=== PATIENT | male | born 1965 | race Caucasian/White ===

== ENCOUNTER 2025-09-11 08:43 | Day surgery (SDC) | payer BC ==
[~2025-09-11 08:43] MED LIST: Sodium Chloride 0.9% 10 ML Syringe FLUSH PRN; Sodium Chloride 0.9% 2.5 ML Syringe FLUSH PRN
[2025-09-11] MEDS: Lactated Ringers 1,000 ML IV SCH (09:38)
[2025-09-11] MEDS ORDERED: propofoL 500 MG/50 ML 50 ML ONE (10:06)
[2025-09-11] MEDS ORDERED: dexmedeTOMIDine HCl 200 MCG/2 ML SDV ONE (11:00)
== END 2025-09-11 11:51 | disposition home or self-care (01) ==
LOC: MW.SDS 08:43
PROVIDERS: ATTEND Surgery
DX: Z12.11 Encounter for screening for malignant neoplasm of colon (principal); K64.1 Second degree hemorrhoids; K57.30 Diverticulosis of large intestine without perforation or abscess without bleeding; I10 Essential (primary) hypertension; Z88.1 Allergy status to other antibiotic agents; Z88.0 Allergy status to penicillin; Z91.018 Allergy to other foods; Z79.899 Other long term (current) drug therapy
CPT/HCPCS: 45378; J2704; J7120; 00812